=== PATIENT | female | born 1950 | race Caucasian/White ===

== ENCOUNTER → 2016-11-11 | Outpatient (REF) | payer OTHER, MEDICARE ==
[~2016-11-11] MED LIST: BENA25CA2 PO; CALC500T49 PO; CENTTAB47 PO; COMP1TAB PO; COUM2.5T11 PO; DULO1CAP3 PO; IBUPOTC PO; IMIT100T PO; LEVO25TA5 PO; OMEP40CA2 PO; PERC5TAB6 PO; PRAV40TA2 PO; PROP40TA PO; TYLE325T5 PO; VITA500046 PO
[2016-11-11 18:02] LABS: BLOOD UREA NITROGEN 9 MG/DL (7-18); CREATININE FOR GFR 0.62 MG/DL (0.55-1.02); GLOMERULAR FILTRATION RATE > 60.0 (>45)
== END ==
LOC: M LABDRAW1 17:01
PROVIDERS: ATTEND Physical Medicine & Rehabilitation
DX: M54.5 Low back pain (principal)

== ENCOUNTER → 2018-07-27 | Outpatient (REF) | payer OTHER, MEDICARE | LOC: M LAB REF 12:04 | DX: M47.814 Spondylosis without myelopathy or radiculopathy, thoracic region (principal) ==

== ENCOUNTER → 2019-02-14 | Outpatient (REF) | payer MEDICARE, OTHER ==
[~2019-02-14] MED LIST changes: -COUM2.5T11 PO; +COUM2.5T17 PO; +PERC5TAB12 PO; -PERC5TAB6 PO; -PROP40TA PO; +PROP40TA62 PO
[2019-02-14 12:36] LABS: COLLAGEN EPINEPHRINE 238 SECONDS (74-162)
[2019-02-14 13:07] LABS: COLLAGEN ADP 143 SECONDS (56-103)
== END ==
LOC: M LABDRAW1 12:02
PROVIDERS: ATTEND Ophthalmology
DX: H50.05 Alternating esotropia (principal)

== ENCOUNTER → 2019-02-18 | Outpatient (REF) | payer MEDICARE, OTHER ==
[2019-02-18 16:33] LABS: COLLAGEN EPINEPHRINE 179 SECONDS (74-162)
[2019-02-18 16:41] LABS: COLLAGEN ADP 151 SECONDS (56-103)
== END ==
LOC: M LABDRAW1 15:39
PROVIDERS: ATTEND Ophthalmology
DX: H50.05 Alternating esotropia (principal)

== ENCOUNTER 2019-05-21 15:12 | Outpatient (CLI) | payer MEDICARE ==
[~2019-05-21] VITALS: Ht 157.5 cm; Wt 78.5 kg
[~2019-05-21 15:12] MED LIST changes: -DULO1CAP3 PO; +DULO1CAP6 PO
[2019-05-21 15:15] VITALS: BP 135/69
[2019-05-21] MEDS ORDERED: B-12100T2 PO (15:42)
[2019-05-21] MEDS: ZOLEDRONIC ACID 5 MG in APPROPRIATE DILUENT 1 EA IV ONE (15:50)
[2019-05-21 16:40] VITALS: BP 127/70
== END 2019-05-21 16:40 | disposition home or self-care (01) ==
LOC: M INFU 15:12
PROVIDERS: ATTEND Internal Medicine Endocrinology, Diabetes & Metabolism
DX: M81.0 Age-related osteoporosis without current pathological fracture (principal)
CPT/HCPCS: 96365; J3489

== ENCOUNTER → 2021-04-23 | Outpatient (CLI) | payer OTHER ==
[~2021-04-23] MED LIST changes: +B-12100T2 PO; -OMEP40CA2 PO; +OMEP40CA4 PO
--- NOTE | 2021-04-23 15:20 | REP ---
INDICATION: THORACIC DDD, R/O METS AND T1 AND T2. COMPARISON: 05/28/2015. TECHNIQUE/RADIOTRACER AND DOSE: Following the intravenous administration of 21.9mCi technetium 99 M MDP, patient's whole-body is imaged in multiple projections. FINDINGS: Mild increased uptake in the right posterior cervical facet joints is compatible with arthritic uptake. There appears to be mild arthritic uptake in the facets of the mid to lower lumbar spine. There also appears to be arthritic uptake in both wrists and shoulders, as well as sternoclavicular joints. There is no compelling scintigraphic evidence of occult fracture or osseous metastases. Renal and bladder activity are seen. IMPRESSION: Scattered arthritic uptake as discussed above. No compelling scintigraphic evidence of occult fracture or osseous metastases. <Electronically signed by Bartolo Rios > 04/23/21 [id number]
== END ==
LOC: M RAD 10:23
PROVIDERS: ATTEND Physical Medicine & Rehabilitation
DX: M51.34 Other intervertebral disc degeneration, thoracic region (principal)

== ENCOUNTER → 2023-01-10 | Outpatient (CLI) | payer OTHER ==
[2023-01-10 15:23] LABS: BLOOD UREA NITROGEN 16 MG/DL (9-23); CREATININE FOR GFR 0.62 MG/DL (0.55-1.30); GLOMERULAR FILTRATION RATE > 60.0 (>39)
== END ==
LOC: M LAB 14:17
PROVIDERS: ATTEND Physical Medicine & Rehabilitation
DX: M51.34 Other intervertebral disc degeneration, thoracic region (principal)